=== PATIENT | male | born 1960 | race Caucasian/White ===

== ENCOUNTER 2023-05-15 16:43 | Emergency (ER) | payer SELFPAY ==
[~2023-05-15] VITALS: Ht 170.2 cm; Wt 100.0 kg
[2023-05-15 16:46] VITALS: O2SAT 96
[2023-05-15] MEDS ORDERED: SODIUM CHLORIDE 0.9% 1,000 ML IV ONE (17:00)
[2023-05-15 17:14] LABS: BASOPHILS % 2.2 % (0.0-2.0); EOSINOPHILS % 0.5 % (0.0-5.0); HEMATOCRIT. 29.5 % (42.0-52.0); HEMOGLOBIN. 8.8 g/dL (14.0-18.0); LYMPHOCYTES % 56.6 % (20.0-50.0); MEAN CORPUSCULAR HEMOGLOBIN 19.6 pg (28.0-32.0); MEAN CORPUSCULAR VOLUME 65.6 fL (80.0-94.0); MEAN PLATELET VOLUME 8.9 fl (7.4-10.4); MONOCYTES % 6.3 % (2.0-8.0); NEUTROPHILS % 34.4 % (40.0-76.0); PLATELET 123 x1000/uL (130-400); RED CELL DISTRIBUTION WIDTH 24.2 % (11.6-14.6)
[2023-05-15 17:20] LABS: CHLORIDE 112 mEq/L (98-107)
[2023-05-15 17:32] LABS: PLATELET ESTIMATE SLIGHTLY DECREASED
[2023-05-15 18:02] LABS: ETHANOL BLOOD 476 mg/dL (-10)
[2023-05-15 20:23] LABS: CLARITY URINE CLEAR (CLEAR); COLOR URINE YELLOW (YELLOW); KETONES URINE NEGATIVE (NEGATIVE); LEUKOCYTE ESTERASE URINE NEGATIVE (NEGATIVE); NITRITE URINE NEGATIVE (NEGATIVE); OCCULT BLOOD URINE NEGATIVE (NEGATIVE); PROTEIN URINE NEGATIVE (NEGATIVE); SPECIFIC GRAVITY URINE 1.014 (1.005-1.030); UROBILINOGEN URINE 0.2 E.U./dL (0.2-1.0)
[2023-05-15 20:36] LABS: *AMPHETAMINES SCREEN URINE NEGATIVE (NEGATIVE); *BARBITURATES SCREEN URINE NEGATIVE (NEGATIVE); *BENZODIAZEPINES SCREEN URINE NEGATIVE (NEGATIVE); *COCAINE SCREEN URINE NEGATIVE (NEGATIVE); CANNABINOID URINE SCREEN NEGATIVE (NEGATIVE); METHADONE URINE SCREEN NEGATIVE (NEGATIVE); OPIATES URINE SCREEN NEGATIVE (NEGATIVE); PHENCYCLIDINE URINE SCREEN NEGATIVE (NEGATIVE)
[2023-05-15 23:00] VITALS: BP 145/72; PULSE 108; RESP 18
== END 2023-05-15 23:14 | disposition home or self-care (01) ==
LOC: ER 16:43
DX: F10.129 Alcohol abuse with intoxication, unspecified (principal); Y90.8 Blood alcohol level of 240 mg/100 ml or more
CPT/HCPCS: 80053; 80305; 81003; 80307; 80329; 80320; 83690; 85025; 36415; 96360; 96361; 99283; J7030; Z7610 ×2; G0480

== ENCOUNTER 2025-02-20 19:03 | Emergency (ER) | payer SELFPAY ==
[~2025-02-20] VITALS: Ht 177.8 cm; Wt 87.0 kg
[2025-02-20 19:04] VITALS: TEMP 37.1; O2SAT 98
[2025-02-20 20:16] LABS: BASOPHILS % 2.7 % (0.0-2.0); HEMOGLOBIN. 8.8 g/dL (14.0-18.0); LYMPHOCYTES % 33.7 % (20.0-50.0); MEAN CORPUSCULAR HEMOGLOBIN 16.9 pg (28.0-32.0); MEAN CORPUSCULAR HGB CONC 27.6 g/dL (31.0-37.0); MEAN CORPUSCULAR VOLUME 61.4 fL (80.0-94.0); MONOCYTES % 13.8 % (2.0-8.0); NEUTROPHILS % 48.8 % (40.0-76.0); RED BLOOD CELL COUNT 5.21 mill/uL (4.7-6.1); RED CELL DISTRIBUTION WIDTH 21.4 % (11.6-14.6); WHITE BLOOD COUNT 4.2 x1000/uL (4.5-11.0)
[2025-02-20 20:18] LABS: ADD RBC MORPHOLOGY YES; DIFFERENTIAL COMMENT 1
[2025-02-20 20:41] LABS: CHLORIDE 109 mEq/L (98-107); POTASSIUM 4.1 mEq/L (3.5-5.1); SODIUM 145 mEq/L (136-145)
[2025-02-20 20:42] LABS: CALCIUM 8.7 mg/dL (8.7-10.4); CARBON DIOXIDE 25 mEq/L (21-32)
[2025-02-20 20:46] LABS: CREATININE 0.8 mg/dL (0.6-1.3)
[2025-02-20 20:47] LABS: ETHANOL BLOOD 300 mg/dL (<10); GLUCOSE 144 mg/dL (70-105); UREA NITROGEN BLOOD 8 mg/dL (9-23)
[2025-02-20 20:49] LABS: ALANINE AMINOTRANSFERASE 15 IU/L (10-49); ALBUMIN 4.6 g/dL (3.2-4.8); ASPARTATE AMINOTRANSFERASE 23 IU/L (<34); BILIRUBIN DIRECT 0.2 mg/dL (<=3.0); BILIRUBIN TOTAL 0.5 mg/dL (0.1-1.0); PROTEIN TOTAL 7.4 g/dL (6.0-8.3)
[2025-02-20] MEDS: ONDANSETRON HCL 4MG/2ML INJ IV STA (21:19)
[2025-02-20] MEDS: SODIUM CHLORIDE 0.9% 1,000 ML IV ONE (21:20)
[2025-02-20] MEDS: KETOROLAC 30MG/ML VIAL IV STA (21:20)
[2025-02-20] MEDS ORDERED: DOXYCYCLINE HYCLATE 100 MG/VIAL IV ONE (21:30)
[2025-02-20 23:11] LABS: MEAN PLATELET VOLUME 10.2 fl (7.4-10.4); PLATELET 109 x1000/uL (130-400)
[2025-02-20 23:12] LABS: ANISOCYTOSIS 2+; HYPOCHROMASIA 3+; MICROCYTOSIS 3+; PLATELET ESTIMATE DECREASED
[2025-02-20] MEDS: CEFTRIAXONE 1GM/50ML 50 ML IV NR (23:34)
[2025-02-20 23:39] LABS: CLARITY URINE CLEAR (CLEAR); COLOR URINE YELLOW (YELLOW); GLUCOSE URINE NEGATIVE (NEGATIVE); KETONES URINE NEGATIVE (NEGATIVE); LEUKOCYTE ESTERASE URINE NEGATIVE (NEGATIVE); NITRITE URINE NEGATIVE (NEGATIVE); OCCULT BLOOD URINE NEGATIVE (NEGATIVE); PH URINE 5.5 (4.5-8.0); PROTEIN URINE NEGATIVE (NEGATIVE); SPECIFIC GRAVITY URINE 1.006 (1.005-1.030); UROBILINOGEN URINE 0.2 E.U./dL (0.2-1.0)
[2025-02-21 00:04] LABS: *AMPHETAMINES SCREEN URINE NEGATIVE (NEGATIVE); *BARBITURATES SCREEN URINE NEGATIVE (NEGATIVE); *BENZODIAZEPINES SCREEN URINE NEGATIVE (NEGATIVE); *COCAINE SCREEN URINE NEGATIVE (NEGATIVE); CANNABINOID URINE SCREEN NEGATIVE (NEGATIVE); ECSTASY MDMA SCREEN URINE NEGATIVE (NEGATIVE); METHADONE URINE SCREEN NEGATIVE (NEGATIVE); OPIATES URINE SCREEN NEGATIVE (NEGATIVE); PHENCYCLIDINE URINE SCREEN NEGATIVE (NEGATIVE)
[2025-02-21] MEDS ORDERED: LEVO750T68 MT (00:18)
[2025-02-21] MEDS ORDERED: AZITHROMYCIN 500 MG TABLET PO ONE (00:30)
[2025-02-21 00:46] VITALS: BP 141/64; PULSE 98; RESP 16; O2SAT 100
[2025-02-21] MEDS: DOXYCYCLINE 100MG/100ML 100 ML IV NR (00:54)
[2025-02-23 04:10] LABS: CHLAMYDIA TRACHOMATIS NAA Negative (Negative); NEISSERIA GONORRHOEAE NAA Negative (Negative)
== END 2025-02-21 00:55 | disposition home or self-care (01) ==
LOC: ER 19:03
DX: R10.32 Left lower quadrant pain (principal); N45.1 Epididymitis; N50.812 Left testicular pain; F10.129 Alcohol abuse with intoxication, unspecified; Z79.899 Other long term (current) drug therapy; Y90.9 Presence of alcohol in blood, level not specified
CPT/HCPCS: 87491; 87591; 80076; 80305; 80048; 81003; 80320; 83690; 85025; 36415; 74176; 93976; 76870; 96361; 96365; 96375; 99285; J0696; J3490; J1885; J2405; J7030; Z7610; G0480